=== PATIENT | female | born 1975 | race American Indian/Alaskan Native ===

== ENCOUNTER 2018-07-26 09:25 | Emergency (ER) | payer MEDICARE ==
[2018-07-26 09:36] VITALS: BMI 31.8
[2018-07-26 09:41] VITALS: O2SAT 100
--- NOTE | 2018-07-26 10:32 | C.PDOC ---
History Of Present Illness 42 y/o female presents to the ED with complaints of SOB that began today. Also reports history of anemia, states she had blood work recently showing a hemoglobin of 4. States she was referred to a cold water machine operator, and is scheduled to start iron transfusions tomorrow. Patient also complains of generalized weakness and dizziness/lightheadedness. Otherwise patient denies any chest pain, palpitations, nausea, vomiting, focal weakness, numbness, visual changes, or slurred speech. Time Seen by Provider: 07/26/18 09:49 Chief Complaint (Nursing): Shortness Of Breath History Per: Patient History/Exam Limitations: no limitations Onset/Duration Of Symptoms: Hrs Current Symptoms Are (Timing): Still Present Past Medical History Reviewed: Historical Data, Nursing Documentation, Vital Signs Vital Signs: Last Vital Signs Temp 98.7 F 07/26/18 09:36 Pulse 90 07/26/18 09:36 Resp 18 07/26/18 09:36 BP 166/110 H 07/26/18 09:36 Pulse Ox 100 07/26/18 09:36 - Medical History PMH: Anemia, Deep Vein Thrombosis, Fractures (Left Ankle Fx.), HTN, Pancreatitis Denies: Chronic Kidney Disease Surgical History: Endoscopy - [facility] Procedures D & C NEC (01/07/02) ESOPHAGOGASTRODUODENOSCOPY [EGD] W/CLOSED BIOPSY (07/24/14) IMMOBILIZ/WOUND ATTN NEC (09/12/07) INJECT/INFUSE NEC (05/13/07) LAPAROSCOPIC ROBOTIC ASSISTED PROCEDURE (10/27/14) LAPAROSCOPIC VERTICAL (SLEEVE) GASTRECTOMY (10/27/14) LAPAROSCOPY (01/07/02) OTHER ENDOSCOPY OF SM INTEST (12/08/14) Family History: States: Unknown Family Hx - Social History Hx Tobacco Use: No Hx Alcohol Use: Yes Hx Substance Use: No - Immunization History Hx Tetanus Toxoid Vaccination: No Hx Influenza Vaccination: No Hx Pneumococcal Vaccination: No Review Of Systems Constitutional: Positive for: Weakness (generalized). Negative for: Fever, Chills Eyes: Negative for: Vision Change Cardiovascular: Negative for: Chest Pain, Palpitations Respiratory: Positive for: Shortness of Breath Gastrointestinal: Negative for: Nausea, Vomiting Neurological: Positive for: Dizziness. Negative for: Weakness, Numbness, Change in Speech Physical Exam - Physical Exam Appears: Non-toxic, No Acute Distress Skin: Normal Color, Warm, No Pale Head: Atraumatic, Normacephalic Eye(s): bilateral: Normal Inspection (no pale conjunctiva), PERRL, EOMI Oral Mucosa: Moist Neck: Normal ROM Chest: Symmetrical Cardiovascular: Rhythm Regular, No Murmur Respiratory: Normal Breath Sounds, No Rales, No Rhonchi, No Wheezing Gastrointestinal/Abdominal: Soft, No Tenderness, No Distention Extremity: Bilateral: Atraumatic, Normal Color And Temperature, Normal ROM Neurological/Psych: Oriented x3, Normal Speech ED Course And Treatment O2 Sat by Pulse Oximetry: 100 (RA) Pulse Ox Interpretation: Normal Medical Decision Making Medical Decision Making: Initial Plan: * Blood work * EKG * Chest x-ray * Urinalysis Disposition - Disposition - 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 - Scribe Statement The provider has reviewed the documentation as recorded by the Scribe
--- NOTE | 2018-07-26 10:44 | C.PDOC ---
History Of Present Illness 42 y/o female presents to the ED with complaints of SOB that began today. Also reports history of anemia, states she had blood work recently showing a hemoglobin of 4. 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 Patient also complains of generalized weakness and dizziness/lightheadedness. Otherwise patient denies any chest pain, palpitations, nausea, vomiting, focal weakness, numbness, visual changes, or slurred speech. Time Seen by Provider: 07/26/18 09:49 Chief Complaint (Nursing): Shortness Of Breath History Per: Patient History/Exam Limitations: no limitations Onset/Duration Of Symptoms: Hrs Current Symptoms Are (Timing): Still Present Past Medical History Reviewed: Historical Data, Nursing Documentation, Vital Signs Vital Signs: Last Vital Signs Temp 98.7 F 07/26/18 09:36 Pulse 90 07/26/18 09:36 Resp 18 07/26/18 09:36 BP 166/110 H 07/26/18 09:36 Pulse Ox 100 07/26/18 10:36 - Medical History PMH: Anemia, Deep Vein Thrombosis, Fractures (Left Ankle Fx.), HTN, Pancreatitis Denies: Chronic Kidney Disease Surgical History: Endoscopy - [facility] Procedures D & C NEC (01/07/02) ESOPHAGOGASTRODUODENOSCOPY [EGD] W/CLOSED BIOPSY (07/24/14) IMMOBILIZ/WOUND ATTN NEC (09/12/07) INJECT/INFUSE NEC (05/13/07) LAPAROSCOPIC ROBOTIC ASSISTED PROCEDURE (10/27/14) LAPAROSCOPIC VERTICAL (SLEEVE) GASTRECTOMY (10/27/14) LAPAROSCOPY (01/07/02) OTHER ENDOSCOPY OF SM INTEST (12/08/14) Family History: States: Unknown Family Hx - Social History Hx Tobacco Use: No Hx Alcohol Use: Yes Hx Substance Use: No - Immunization History Hx Tetanus Toxoid Vaccination: No Hx Influenza Vaccination: No Hx Pneumococcal Vaccination: No Review Of Systems Constitutional: Positive for: Weakness (generalized). Negative for: Fever, Chills Eyes: Negative for: Vision Change Cardiovascular: Negative for: Chest Pain, Palpitations Respiratory: Positive for: Shortness of Breath Gastrointestinal: Negative for: Nausea, Vomiting, Hematochezia, Other (GI bleed) Neurological: Positive for: Dizziness. Negative for: Weakness, Numbness, Change in Speech Physical Exam - Physical Exam Appears: Non-toxic, No Acute Distress Skin: Normal Color, Warm, No Pale Head: Atraumatic, Normacephalic Eye(s): bilateral: Normal Inspection (no pale conjunctiva), PERRL, EOMI Oral Mucosa: Moist Neck: Normal ROM Chest: Symmetrical Cardiovascular: Rhythm Regular, No Murmur Respiratory: Normal Breath Sounds, No Rales, No Rhonchi, No Wheezing Gastrointestinal/Abdominal: Soft, No Tenderness, No Distention Extremity: Bilateral: Atraumatic, Normal Color And Temperature, Normal ROM Neurological/Psych: Oriented x3, Normal Speech ED Course And Treatment - Laboratory Results Result Diagrams: 07/26/18 11:05 07/26/18 11:05 Lab Interpretation: No Acute Changes O2 Sat by Pulse Oximetry: 100 (RA) Pulse Ox Interpretation: Normal - Other Rad Chest X-Ray X-Ray: Read By Radiologist Interpretation: Accession No. : [id number]. Patient Name / ID : JACINTA DEVINE S / [id number]. Exam Date : 07/26/2018 10:16:09 ( Approved ). Study Comment : Sex / Age : F / 42Y. Creator : Navarro Fraga MD. Dictator : Navarro Fraga MD. Sales Mgr : Supervisor Cereal : Navarro Fraga MD. Approver2 : Report Date : 07/26/2018 11:27:56. My Comment : . Date of service: 07/26/2018. HISTORY: SOB. COMPARISON: No prior. TECHNIQUE: Chest PA and lateral. FINDINGS: LUNGS: No active pulmonary disease. PLEURA: No significant pleural effusion identified. No pneumothorax apparent. CARDIOVASCULAR: No aortic atherosclerotic calcification present. Heart appears mildly enlarged. No pulmonary vascular congestion. OSSEOUS STRUCTURES: No significant abnormalities. VISUALIZED UPPER ABDOMEN: Normal. OTHER FINDINGS: None. IMPRESSION: No active disease. Progress Note: Patient alert in no distress, talking with visitor. On re- evaluation elevated B/P, patient reports she took her B/P meds FORESTRY AID. Patient neuro intact denies and complaints. Discharged in stable condition, instructed to follow up with PMD for further evaluation. Patient has appointment with hematology tomorrow Reassessment Condition: Improved Medical Decision Making Medical Decision Making: Initial Plan: * Blood work * EKG * Chest x-ray * Urinalysis Labs reviewed, hemoglobin 8.5. All results discussed with patient in detail. Advised to follow up with PMD for further evaluation. 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 - Scribe Statement The provider has reviewed the documentation as recorded by the Scribe (Allyssa Petty) All medical record entries made by the Scribe were at my direction and personally dictated by me. I have reviewed the chart and agree that the record accurately reflects my personal performance of the history, physical exam, medical decision making, and the department course for this patient. I have also personally directed, reviewed, and agree with the discharge instructions and disposition.
[2018-07-26 11:09] LABS: BASO % 0.6 % (0.0-2.0); EOS % 0.3 % (0.0-4.0); LYMPH # 1.4 K/uL (1.0-4.3); LYMPH % 31.6 % (20.0-40.0); MEAN CORPUSCULAR HEMOGLOBIN 22.6 pg (27.0-31.0); MEAN CORPUSCULAR HGB CONC 31.8 g/dL (33.0-37.0); MEAN PLATELET VOLUME 7.8 fL (7.2-11.7); MONO # 0.3 K/uL (0.0-0.8); MONO % 6.5 % (0.0-10.0); NEUT # 2.6 K/uL (1.8-7.0); RBC 3.74 Mil/uL (3.80-5.20); RED CELL DISTRIBUTION WIDTH 16.7 % (11.5-14.5); WHITE BLOOD COUNT 4.3 K/uL (4.8-10.8)
[2018-07-26 11:20] LABS: HEMOGLOBIN 8.5 g/dL (11.0-16.0); MEAN CELL VOLUME 71.3 fL (81.0-99.0)
[2018-07-26 11:23] LABS: HCG,QUALITATIVE URINE NEGATIVE (NEGATIVE)
[2018-07-26 11:29] LABS: ALB/GLOB RATIO 1.1 (1.0-2.1); ALBUMIN 3.9 g/dL (3.5-5.0); ALT/SGPT 13 U/L (9-52); AST/SGOT 22 U/L (14-36); BLOOD UREA NITROGEN 7 mg/dL (7-17); CALCIUM 8.8 mg/dl (8.6-10.4); GFR NON-AFRICAN AMERICAN > 60
--- NOTE | 2018-07-26 11:31 | RAD ---
Date of service: 07/26/2018 HISTORY: SOB COMPARISON: No prior. TECHNIQUE: Chest PA and lateral FINDINGS: LUNGS: No active pulmonary disease. PLEURA: No significant pleural effusion identified. No pneumothorax apparent. CARDIOVASCULAR: No aortic atherosclerotic calcification present. Heart appears mildly enlarged. No pulmonary vascular congestion. OSSEOUS STRUCTURES: No significant abnormalities. VISUALIZED UPPER ABDOMEN: Normal. OTHER FINDINGS: None. IMPRESSION: No active disease.
[2018-07-26 11:33] LABS: SQUAMOUS EPITHIAL 8 /hpf (0-5); URINE BACTERIA RARE (<OCC); URINE BILIRUBIN NEGATIVE (NEGATIVE); URINE BLOOD NEGATIVE (NEGATIVE); URINE CLARITY Clear (Clear); URINE COLOR Yellow (YELLOW); URINE GLUCOSE (UA) NORMAL (Normal); URINE LEUKOCYTE ESTERASE 2+ Leu/uL (Negative); URINE PROTEIN NEGATIVE (NEGATIVE); URINE UROBILINOGEN NORMAL mg/dL (0.2-1.0)
[2018-07-26 12:22] VITALS: BP 165/100; PULSE 78; RESP 18; TEMP 97.8
--- NOTE | 2018-07-27 23:53 | CARD ---
APPROVED REPORT Date of service: 07/26/2018 EKG Measurement Heart [id number] <Conclusion> Normal sinus rhythm with sinus arrhythmia Normal ECG
== END 2018-07-26 12:22 | disposition home or self-care (01) ==
LOC: C.ER 09:25
DX: D64.9 Anemia, unspecified (principal); I10 Essential (primary) hypertension